=== PATIENT | male | born 1970 | race Asian ===

== ENCOUNTER 2017-08-25 11:51 | Inpatient (IN) | END 2017-08-31 17:03 | disposition home or self-care (01) | DRG 871 | DX: A41.9 Sepsis, unspecified organism (principal); J18.9 Pneumonia, unspecified organism; N17.9 Acute kidney failure, unspecified; E87.1 Hypo-osmolality and hyponatremia; N13.2 Hydronephrosis with renal and ureteral calculous obstruction; E85.9 Amyloidosis, unspecified; R65.20 Severe sepsis without septic shock; R59.1 Generalized enlarged lymph nodes; G62.9 Polyneuropathy, unspecified; N52.9 Male erectile dysfunction, unspecified; N18.2 Chronic kidney disease, stage 2 (mild); R63.4 Abnormal weight loss; Z68.32 Body mass index [BMI] 32.0-32.9, adult; R06.03 Acute respiratory distress; Z87.891 Personal history of nicotine dependence ==

== ENCOUNTER 2017-11-09 13:42 | Inpatient (IN) | END 2017-11-14 08:40 | disposition short-term general hospital (02) | DRG 546 ==

== ENCOUNTER 2017-11-26 00:05 | Inpatient (IN) | END 2017-11-29 19:33 | disposition short-term general hospital (02) | DRG 871 ==